=== PATIENT | female | born 1945 | race Caucasian/White ===

== ENCOUNTER 2021-05-20 10:52 | Inpatient (IN) ==
[2021-05-20] MEDS ORDERED: GLUCAGON 1 MG VIAL IM PRN (14:08)
[2021-05-20] MEDS ORDERED: hydrALAZINE 20 MG/1 ML VIAL IV PRN (14:08)
[2021-05-20] MEDS ORDERED: DEXTROSE 50% 25 GM/50 ML VIAL IV PRN (14:08)
[2021-05-20 14:46] LABS: Basophils % 0.2 % (0.0-0.8); Eosinophils # 0.1 10*3/uL (0.0-0.87); Eosinophils % 1.6 % (0.00-10.9); Hematocrit 31.1 VOL% (35.7-47.0); Hemoglobin 10.4 GM/DL (12.0-16.0); Immature Granulocytes % 0.7 %; Immature Granulocytes Absolute 0.03 #; Lymphocytes # 0.4 10*3/uL (1.4-4.0); Lymphocytes % 9.7 % (21.3-54.2); Mean Corpuscular HGB Conc 33.4 GM/DL (32-36); Mean Corpuscular Volume 95.4 FL (87-102); Mean Platelet Volume 11.7 FL (9.6-12.0); Neutrophils % 80.8 % (38.7-73.9); Platelet Count 58 T/CUMM (130-400); Red Blood Count 3.26 MC/CUMM (3.8-5.5); Red Cell Distribution Width 13.7 % (9.3-17.3); White Blood Count 4.4 T/CUMM (4-12)
[2021-05-20] MEDS: MORPHINE 2 MG/1 ML SYRINGE IV PRN ×2 (14:47→19:03)
[2021-05-20] MEDS: ONDANSETRON 4 MG/2 ML VIAL IV PRN ×2 (14:48→19:02)
[2021-05-20 15:06] LABS: Albumin 3.1 G/DL (3.4-5.0); Osmolality,Calculated 274.8 MOS/KG (273-304); Potassium 3.7 MMOL/L (3.5-5.1); Total Protein 6.3 G/DL (6.4-8.2)
[2021-05-20 17:00] LABS: Anisocytosis Slight; Platelet Estimate Decreased
[2021-05-20 17:27] LABS: INR 1.1; PT Patient Result 11.9 SECS (10.5-12.0); Partial Thromboplastin Time 28.1 SECS (23.9-33.8)
[2021-05-20] MEDS: INSULIN LISPRO 100 UNIT/ML SUBCUT SCH ×2 (18:40→22:16)
[2021-05-20] MEDS: SODIUM CHLORIDE 0.9% 1,000 ML IV SCH (19:00)
[2021-05-20] MEDS: CIPROFLOXACIN INJ 400 MG/200 ML PREMIX IV SCH (19:01)
[2021-05-20] MEDS: metroNIDAZOLE INJ 500 MG in PREMIX 1 EACH IV SCH (22:25)
[2021-05-21] MEDS: metroNIDAZOLE INJ 500 MG in PREMIX 1 EACH IV SCH ×3 (04:00→21:32)
[2021-05-21] MEDS: CIPROFLOXACIN INJ 400 MG/200 ML PREMIX IV SCH ×2 (05:00→17:20)
[2021-05-21 06:00] LABS: Eosinophils # 0.1 10*3/uL (0.0-0.87); Eosinophils % 2.6 % (0.00-10.9); Hematocrit 30.7 VOL% (35.7-47.0); Hemoglobin 10.2 GM/DL (12.0-16.0); Immature Granulocytes % 0.3 %; Immature Granulocytes Absolute 0.01 #; Lymphocytes # 0.4 10*3/uL (1.4-4.0); Lymphocytes % 13.9 % (21.3-54.2); Mean Corpuscular HGB Conc 33.2 GM/DL (32-36); Mean Corpuscular Volume 95.6 FL (87-102); Mean Platelet Volume 12.4 FL (9.6-12.0); Monocytes % 8.7 % (1.7-12.7); Neutrophils % 73.5 % (38.7-73.9); Red Blood Count 3.21 MC/CUMM (3.8-5.5); Red Cell Distribution Width 13.5 % (9.3-17.3); White Blood Count 3.1 T/CUMM (4-12)
[2021-05-21 06:17] LABS: Platelet Count 54 T/CUMM (130-400)
[2021-05-21 06:23] LABS: Calcium 8.8 MG/DL (8.5-10.1); Osmolality,Calculated 277.5 MOS/KG (273-304); Potassium 3.5 MMOL/L (3.5-5.1)
[2021-05-21 06:30] LABS: Risk Ratio 3.61
[2021-05-21] MEDS ORDERED: PANTOPRAZOLE 40 MG VIAL IV SCH (06:30)
[2021-05-21] MEDS: lisinopriL 20 MG TABLET PO SCH (08:47)
[2021-05-21] MEDS: INSULIN LISPRO 100 UNIT/ML SUBCUT SCH ×4 (08:48→21:27)
[2021-05-21] MEDS: SODIUM CHLORIDE 0.9% 1,000 ML IV SCH (08:48)
[2021-05-21] MEDS: amLODIPine 10 MG TABLET PO SCH (08:48)
[2021-05-21] MEDS: hydroCHLOROthiazide 25 MG TABLET PO SCH (08:48)
[2021-05-21] MEDS: MORPHINE 2 MG/1 ML SYRINGE IV PRN (10:07)
[2021-05-21 12:02] LABS: Platelet Estimate Decreased
[2021-05-22] MEDS: metroNIDAZOLE INJ 500 MG in PREMIX 1 EACH IV SCH (03:34)
[2021-05-22] MEDS: CIPROFLOXACIN INJ 400 MG/200 ML PREMIX IV SCH (04:20)
[2021-05-22] MEDS: ONDANSETRON 4 MG/2 ML VIAL IV PRN (05:29)
[2021-05-22 06:25] LABS: Basophils % 0.9 % (0.0-0.8); Eosinophils # 0.1 10*3/uL (0.0-0.87); Eosinophils % 5.4 % (0.00-10.9); Hematocrit 30.2 VOL% (35.7-47.0); Hemoglobin 10.2 GM/DL (12.0-16.0); Immature Granulocytes % 0.4 %; Immature Granulocytes Absolute 0.01 #; Lymphocytes # 0.3 10*3/uL (1.4-4.0); Lymphocytes % 12.1 % (21.3-54.2); Mean Corpuscular HGB Conc 33.8 GM/DL (32-36); Mean Corpuscular Volume 96.2 FL (87-102); Monocytes % 12.5 % (1.7-12.7); Neutrophils % 68.7 % (38.7-73.9); Platelet Count 54 T/CUMM (130-400); Red Blood Count 3.14 MC/CUMM (3.8-5.5); Red Cell Distribution Width 13.4 % (9.3-17.3); White Blood Count 2.2 T/CUMM (4-12)
[2021-05-22 06:27] LABS: Calcium 8.1 MG/DL (8.5-10.1); Osmolality,Calculated 282.3 MOS/KG (273-304); Potassium 3.4 MMOL/L (3.5-5.1)
[2021-05-22] MEDS: INSULIN LISPRO 100 UNIT/ML SUBCUT SCH ×2 (07:16→12:51)
[2021-05-22] MEDS ORDERED: POTASSIUM CHLORIDE 20 MEQ TABLET PO ONE ×2 (07:26→13:00)
[2021-05-22] MEDS: amLODIPine 10 MG TABLET PO SCH (08:05)
[2021-05-22] MEDS: hydroCHLOROthiazide 25 MG TABLET PO SCH (08:05)
[2021-05-22] MEDS: lisinopriL 20 MG TABLET PO SCH (08:05)
[2021-05-22 08:54] LABS: Platelet Estimate Decreased
[2021-05-22 12:15] VITALS: BP 123/47
[2021-05-22] MEDS ORDERED: metroNIDAZOLE 500 MG TABLET PO SCH (15:00)
[2021-05-22] MEDS ORDERED: CIPROFLOXACIN 500 MG TABLET PO SCH (21:00)
== END 2021-05-22 13:40 | disposition home or self-care (01) | DRG 392 ==
LOC: N.5E → SUATTDRO 12:51
PROVIDERS: ADMIT Internal Medicine; ATTEND Internal Medicine